=== PATIENT | female | born 1990 | race Caucasian/White ===

== ENCOUNTER → 2016-07-04 | Outpatient (CLI) | payer OTHER | LOC: FIMAGING 08:26 | PROVIDERS: ATTEND Surgery | DX: K44.9 Diaphragmatic hernia without obstruction or gangrene (principal); R10.13 Epigastric pain; R11.2 Nausea with vomiting, unspecified ==

== ENCOUNTER → 2016-07-05 | Outpatient (CLI) | payer OTHER | LOC: CIMAGING 07:18 | PROVIDERS: ATTEND Surgery | DX: K76.0 Fatty (change of) liver, not elsewhere classified (principal); K44.9 Diaphragmatic hernia without obstruction or gangrene | CPT/HCPCS: 76705-PO ==